=== PATIENT | female | born 1955 | race Two or more races ===

== ENCOUNTER 2018-12-13 09:30 | Inpatient (IN) | payer OTHER ==
[~2018-12-13] VITALS: Ht 154.9 cm; Wt 77.3 kg
[2019-02-17] MEDS ORDERED: METFORMIN HCL1000 M1 ORAL (10:54)
[2019-02-17] MEDS ORDERED: GLIPIZIDE XL10 M1 ORAL (10:54)
[2019-02-17] MEDS ORDERED: LISINOPRIL20 MG ORAL (10:54)
[2019-02-17] MEDS ORDERED: ATORVASTATIN CA40 MG ORAL (10:54)
[2019-02-17] MEDS ORDERED: ASPIR 8181 MG ORAL (10:54)
[2019-02-18] VITALS (16 sets, daily range): BP systolic 114–189; BP diastolic 54–85
[2019-02-18] MEDS ORDERED: fentaNYL 100 mcg/2 mL IV ONE (06:34)
[2019-02-18] MEDS ORDERED: Midazolam 2mg/2ml Inj ONE (06:34)
[2019-02-18] MEDS ORDERED: Lidocaine 1% MPF 10mg/ml 5ml ONE (06:37)
[2019-02-18] MEDS ORDERED: Zemuron 50mg/5ml Inj IV ONE (06:46)
[2019-02-18] MEDS ORDERED: Succinylcholine 20mg/ml 10ml vial ONE (06:46)
[2019-02-18] MEDS ORDERED: Vancomycin 1gm vial IVPB ONE (06:52)
[2019-02-18] MEDS ORDERED: Gelfoam Size TOPIC ONE (06:53)
[2019-02-18] MEDS ORDERED: Thrombin 5000 units TOPIC ONE (06:53)
[2019-02-18] MEDS ORDERED: Bacitracin 50000 Units Vial ONE (06:53)
[2019-02-18] MEDS ORDERED: Phenylephrine 10mg/ml Vial ONE (06:54)
[2019-02-18] MEDS ORDERED: LR 1000ml ONE (07:00)
[2019-02-18] MEDS ORDERED: Ketorolac 30mg Inj ONE (07:00)
[2019-02-18] MEDS ORDERED: ceFAZolin sod 2 GM in D5W 110 ML IVPB ONE (07:00)
[2019-02-18] MEDS ORDERED: Sterile Water Irrig 1000ml IRRIG ONE (07:00)
[2019-02-18] MEDS ORDERED: Propofol 1,000mg/ 100ml btl IV ONE (07:00)
[2019-02-18] MEDS ORDERED: NS Irrig 1000ml ONE (07:00)
--- NOTE | 2019-02-18 07:15 | Pre-Procedure Note/Attestation ---
Pre-Procedure Note/Attestation Complete Prior to Procedure Planned Procedure: not applicable Procedure Narrative: Anterior cervical discectomy and fusion of C56 and C67 Indications for Procedure Pre-Operative Diagnosis: herniation C56,67 Attestation I attest that I discussed the nature of the procedure; its benefits; risks and complications; and alternatives (and the risks and benefits of such alternatives ), prior to the procedure, with the patient (or the patient's legal student services representative). I attest that, if there was a reasonable possibility of needing a blood transfusion, the patient (or the patient's legal student services representative) was given the [facility] standardized written summary, pursuant to the Lorenzo Palak Blood Safety Act ([place] Health and Safety Code # 1645, as amended). I attest that I re-evaluated the patient just prior to the surgery and that there has been no change in the patient's H&P, except as documented below: Houston Herron MD Feb 18, 2019 07:15
--- NOTE | 2019-02-18 07:16 | Brief Operative Note ---
Immediate Post Operative Note Operative Note Chief Complaint: neck pain and radiculopathy Pre-op Diagnosis: herniation C56,67 Procedure: Anterior cervical discectomy and fusion of C56 and C67 Post-op Diagnosis: same as pre-op Findings: consistent w/pre-op dx studies Surgeon: Germaine Blending Plant Operator: Milena Anesthesia: general Specimen: none Complications: none Condition: stable Fluids: IVF Estimated Blood Loss: minimal Drains: none Implant(s) used?: Yes - Nuvasive interlock c Sz 6x2 Screws 6x 13mm Houston Herron MD Feb 18, 2019 07:16
[2019-02-18] MEDS ORDERED: HYDROcodone/Acetamin 5/325 tab ORAL PRN (07:30)
[2019-02-18] MEDS ORDERED: Milk of Magnesia 30ml Ud ORAL PRN (07:30)
[2019-02-18] MEDS ORDERED: HYDROmorphone 1mg/ml Carpuject IVP PRN (07:30)
[2019-02-18] MEDS ORDERED: Chloraseptic Spray 20mL Bottle ORAL PRN (07:30)
[2019-02-18] MEDS ORDERED: Naloxone 0.4mg/ml Inj IVP PRN (07:30)
[2019-02-18] MEDS ORDERED: HYDROmorphone 1mg/ml Carpuject SUBQ PRN (07:30)
[2019-02-18] MEDS ORDERED: Metoclopramide 10mg/2ml Inj IVP PRN ×2 (07:30→08:30)
[2019-02-18] MEDS ORDERED: HYDROcodone/Acetamin 7.5/325 tab ORAL PRN (07:30)
[2019-02-18] MEDS ORDERED: Morphine Sulfate 10mg/ml Inj ONE (08:18)
--- NOTE | 2019-02-18 08:29 | Anethesia Preoperative Eval ---
Anesthesia Pre-op PMH/ROS General Date of Evaluation: Feb 18, 2019 Time of Evaluation: 07:10 Anesthesiologist: Yuliana ASA Score: ASA 2 Mallampati Score Class I : Soft palate, uvula, fauces, pillars visible Class II: Soft palate, uvula, fauces visible Class III: Soft palate, base of uvula visible Class IV: Only hard plate visible Mallampati Classification: Class II Surgeon: Germaine Diagnosis: Cervical radiculopathy Surgical Procedure: ACDF Anesthesia History: none Family History: no anesthesia problems Allergies: Coded Allergies: No Known Allergies (Unverified , 02/17/19) Medications: see eMAR Patient NPO?: Yes NPO Date: Feb 17, 2019 NPO Time: 1999 Past Medical History Cardiovascular: Reports: HTN; Denies: CAD, [place], valve dz, arrhythmia, other Pulmonary: Denies: asthma, COPD, SANDOR, other Gastrointestinal/Genitourinary: Reports: GERD Neurologic/Psychiatric: Reports: depression/anxiety; Denies: dementia, CVA, TIA, other Endocrine: Reports: DM - stable on pills; Denies: hypothyroidism, steroids, other HEENT: Reports: cataract (L), other - L eye blind Hematology/Immune: Reports: anemia - mild; Denies: DVT, bleeding disorder, other Musculoskeletal/Integumentary: Reports: OA PMH Narrative: as above PSxH Narrative: C- sections x2, knee Sx, bilateral cataracts Anesthesia Pre-op Phys. Exam Physician Exam Last Vital Signs Date Time Temp Pulse Resp B/P (MAP) Pulse Ox O2 Delivery O2 Flow Rate FiO2 02/18/19 07:07 Room Air 02/18/19 06:52 98.3 88 18 189/79 (115) 99 Constitutional: NAD Neurologic: CN 2-12 intact Cardiovascular: RRR, no M/R/G Respiratory: CTA Airway Exam Mallampati Score: Class II MO: limited Neck: stiff ROM: limited Teeth: missing, broken Dentures: no upper, no lower Anesthesia Pre-op A/P Labs see chart Accucheck 80 at admission Studies Pre-op Studies: EKG - NSR Risk Assessment & Plan Assessment: ASA 2 Plan: GA with ETT neuromonitoring Status Change Before Surgery: No Pre-Antibiotics Drug: Ancef 2gr Given Within 1 Hr of Incision: Yes Time Given: 07:40 Ector Bridges MD Feb 18, 2019 08:29
[2019-02-18] MEDS ORDERED: Acetaminophen (Non formulary) 100 ML IV ONE (08:30)
[2019-02-18] MEDS ORDERED: Hydromorphone 0.5mg/0.5ml inj IVP PRN (08:30)
[2019-02-18] MEDS ORDERED: DiphenhydrAMINE 50mg/ml Inj IVP PRN (08:30)
[2019-02-18] MEDS ORDERED: Ketorolac 30mg Inj IV PRN (08:30)
[2019-02-18] MEDS ORDERED: LR 1000ml 1,000 ML IVLG SCH (08:30)
[2019-02-18] MEDS: Docusate 100mg cap ORAL SCH ×2 (09:00→17:26)
--- NOTE | 2019-02-18 09:25 | Immediate Post-Op Evaluation ---
Immediate Post-Op Evalulation Immediate Post-Op Evalulation Procedure: ACDF C5 to C7 Date of Evaluation: Feb 18, 2019 Time of Evaluation: 09:24 IV Fluids: 600 Blood Products: none Estimated Blood Loss: 50 Urinary Output: 200 Blood Pressure Systolic: 136 Blood Pressure Diastolic: 73 Pulse Rate: 68 Respiratory Rate: 20 O2 Sat by Pulse Oximetry: 99 Temperature (Fahrenheit): 97.6 Pain Score (1-10): 1 Nausea: No Vomiting: No Complications none Patient Status: reacts, patent, extubated, none Hydration Status: adequate Ector Bridges MD Feb 18, 2019 09:25
--- NOTE | 2019-02-18 10:45 | NUR ---
NURSE NOTES: REC'D FROM PACU SP ACDF C5-C6,C6=C7. DROWSY BUT AROUSABLE. IV INFUSING. ANT DERMABAND DRESSING DRY AND INTACT ICE PACK ON. V/S TAKEN. PAIN SCALE 5/10. WITH GOOD HAND MANAGER PROCESS. NEURO CHECK GOOD, IN NO APPARENT DISTRESS.
[2019-02-18] MEDS: NS w/KCl 20mEq 1000ml 1,000 ML IV SCH ×2 (11:35→21:45)
--- NOTE | 2019-02-18 11:41 | NUR ---
NURSE NOTES: dr tejeda covering for dr danielle gilliam called re pt back from surgery and re: home reconciliation med list. left message to return call.
[2019-02-18] MEDS: Dexamethasone 4mg/ml vial IVP SCH ×2 (13:51→20:14)
--- NOTE | 2019-02-18 14:41 | Diagnostic Imaging Report ---
Indication: Neck Pain Findings: 3 fluoroscopic views of the cervical spine were obtained. Intraoperative imaging utilizing localization followed by anterior fusion at C5-6 and C6-7 are demonstrated. IMPRESSION: Intraoperative imaging
--- NOTE | 2019-02-18 15:20 | NUR ---
CASE MANAGEMENT:REVIEW 63 YR OLD FEMALE HERE FOR ELECTIVE SURGERY SI: NECK PAIN AND RADICULOPATHY 97.1 66 19 121/62 97% ON RA IS: TO SURGERY FOR: ANTERIOR CERVICAL DISCECTOMY AND FUSION : TO MED/SURG 3 EAST POST OP
[2019-02-18] MEDS: ceFAZolin sod 1 GM in D5W 55 ML IV SCH (15:32)
--- NOTE | 2019-02-18 16:58 | NUR ---
NURSE NOTES: ACCUCHECK Jeanna HUI CALLED LEFT MESSAGE . WILL SEE PT LATER.
--- NOTE | 2019-02-18 17:30 | Operative Note - Dictated ---
DATE OF OPERATION: 02/18/2019 SURGEON: Houston Herron M.D., Orthopedic Spine Surgeon. DELIVERY PROFESSIONAL: BASILIO Avalos. PREOPERATIVE DIAGNOSES: 1. Intractable neck pain. 2. Radiculopathy. 3. Herniation, C5-C6 and C6-C7. 4. Neural foraminal stenosis, C5-C6 and C6-C7. 5. Stenosis. POSTOPERATIVE DIAGNOSES: 1. Intractable neck pain. 2. Radiculopathy. 3. Herniation, C5-C6 and C6-C7. 4. Neural foraminal stenosis, C5-C6 and C6-C7. 5. Stenosis. PROCEDURE PERFORMED: 1. Anterior cervical discectomy and fusion of C5-C6 using NuVasive Interlock-C, size 6 with three screws of 13 mm length. There was 1 mL of Osteocel allograft bone used. 2. Anterior cervical discectomy and fusion of C6-C7 using NuVasive Interlock-C, size 6 with three screws of 13 mm. There was 1 mL of Osteocel allograft bone used. 3. Use of intraoperative microscope. 4. Motor evoked potential monitoring. 5. Somatosensory evoked potential monitoring. 6. Supervision and interpretation of fluoroscopy. COMPLICATIONS: None. ANESTHESIA: General. ESTIMATED BLOOD LOSS: Less than 100 mL. INDICATIONS FOR SURGERY: This patient is a 63-year-old female, who has a history of intractable neck pain, radiculopathy, herniation of C5-C6 and C6-C7, neural foraminal stenosis of C5-C6 and C6-C7, and stenosis. We tried a course of conservative management but despite this course there was still a significant component of persistent, recalcitrant neck pain and arm pain. The MRI demonstrated significant neural foraminal compromise secondary to disc herniations at C5-C6 and C6-C7. We had a long discussion with Arlen regarding the risks and benefits of surgery. Our discussion included but was not limited to nonoperative management, chiropractic management, another epidural steroid injection as well definitive management in the form of surgery. We recommended an anterior cervical discectomy and fusion of C5-C6 and C6-C7 as final definitive management. We reviewed the risks and benefits of surgery with the patient. Our discussion included a comprehensive review of the clinical issues and the nature of the clinical decision. We reviewed the alternatives, including doing nothing. The patient elected to proceed accordingly with an anterior cervical discectomy and fusion of C5-C6 and C6-C7. We had a long discussion regarding the risks, alternatives and benefits of surgery. Our description of the risks included a discussion in person as well as a signed consent which detailed all pertinent risks from the procedure itself. Briefly, our discussion included but was not limited to infection, bleeding, pseudarthrosis, spinal cord injury, neurovascular injury, dural tear, CSF leak, neuropathy, paralysis, permanent weakness/drop foot/drop arm, paresthesias, blindness, palsy and weakness. The patient understood there may be a need for a revision surgery or additional procedures. Approach-related complications including dysphonia, dysphagia, blindness, permanent vocal cord and neural injury, hematoma, swallowing and breathing difficulty. Medical complications were reviewed including liver, kidney, shock, cardiopulmonary failure, anesthesia complications including , swelling, damage to the musculature, larynx/voice injury or loss, esophagus/throat, trachea, blood vessels and muscles/muscular sprain and lungs/pneumothorax during this surgical procedure; injury to deeper structures may be temporary or permanent. After this review of risks, the patient understood these and elected to proceed. A written and verbal consent was given. We discussed the pros and cons of all the alternatives. We discussed the uncertainties associated with the decision. Afterwards I assessed the patient's understanding and explored their preferences. All questions were answered and no guarantees were given. Medical clearance was obtained prior to surgery. INTRAOPERATIVE FINDINGS: At C6-C7, there was a collapsed disc space noted with a disc that was desiccated itself and severe foraminal stenosis bilaterally, right more than left-sided. At C5-C6, there was a tear in the posterior longitudinal ligament noted on the right hand side, which was 30 degrees cephalad to caudad. Through this tear, I noticed migration of a soft herniated fragment, which was encroaching on the neural foraminal at C5-C6. This was probed with a Microsect 1-B. The stalk of the disc retrieved along with the remainder of the nuclear fragments of the neural foraminal, which was stenotic as a result of the herniated disc, right more than left sided. DESCRIPTION OF PROCEDURE: Under the benefit of general endotracheal anesthesia and with the assistance of the entire operative team, the patient was moved from the rney onto the operative table in the supine position. The head was secured and carefully positioned appropriately. Bilateral arms were secured with Gel Pads and foam and all bony prominences were padded. For the bilateral lower extremities SCD and IGNACIO hose were placed for DVT prophylaxis. A surgical timeout was called which corroborated our planned procedure of an anterior cervical discectomy and fusion of C5-C6 and C6-C7. Preoperative antibiotics were administered within 30 minutes of the incision for antibiotic prophylaxis. Using lateral fluoroscopic radiography, the operative levels were delineated. Next the wound was prepped and draped with Chlorhexidine and sterile drapes. An incision was based on lateral fluoroscopy and we centered our incision at the C5-C6 and C6-C7 interspace and next using a standard Butts-Leigh anterior based approach the incision was taken down through the skin and subcutaneous tissues until the vertebral bodies and their corresponding disc spaces were visualized. A needle was placed into the interspace to confirm placement of the operative interspace and we performed the remainder of procedure under microscopic visualization. Next, using a bipolar and Bovie cautery to ensure meticulous hemostasis, the longus colli was mobilized bilaterally and retractors were placed deep to the longus colli bilaterally to address retraction. Next we turned our attention to the radical anterior discectomy. This was initially performed at C5-C6. First by using a 15 blade scalpel followed by narrow pituitaries and a Microsect 5-B curette was used to denude the endplate of all cartilaginous tissue. Next using a [employer] Thanh AM8 drill bit the partial vertebrectomy was performed in a jpmt-gs-pxdz and layer by layer fashion, and ultimately the posterior uncinate joints bilaterally and posterior osteophytic lips and margins causing central and lateral impingement were carefully denuded until visualization of the posterior longitudinal ligament was possible. At C5-C6, there was a tear in the posterior longitudinal ligament noted on the right hand side, which was 30 degrees cephalad to caudad. Through this tear, I noticed migration of a soft herniated fragment, which was encroaching on the neural foraminal at C5-C6. This was probed with a Microsect 1-B. The stalk of the disc retrieved along with the remainder of the nuclear fragments of the neural foraminal, which was stenotic as a result of the herniated disc, right more than left sided. An endplate preparation was performed in the exact same fashion using an intervertebral expressive therapist, sequential distraction was obtained throughout the disc space. This neural foraminal compression was carefully resected using a Kerrison-1 and Kerrison-2 rongeurs until complete decompression of the spinal cord was visualized and complete decompression of the neural foramina and nerve root therein as well as the axilla and lateral margin of the nerve root was visualized and subsequently completely decompressed. The family was notified at one hour intervals throughout the procedure to provide for consistent updates. Next, we turned our attention to the radical anterior discectomy at the C6-C7 level first by using a 15 blade scalpel followed by narrow pituitaries and a Microsect 5-B curette was used to denude the endplate of all cartilaginous tissue. Next, using a [employer] AM8 drill bit, the partial vertebrectomy was performed in a pblf-so-zcta and qzvsz-ha-gvbwx fashion, and ultimately the posterior uncinate joints bilaterally and posterior osteophytic lips and margins causing central and lateral impingement were carefully denuded until visualization of the posterior longitudinal ligament was possible. An endplate preparation was performed in the exact same fashion using an intervertebral expressive therapist, sequential distraction was obtained throughout the disc space. At C6-C7, there was a collapsed disc space noted with a disc that was desiccated itself and severe foraminal stenosis bilaterally, right more than left-sided. We saw a tear/rent in the PLL and this was carefully mobilized and dissected using a Microsect 1-B curette until we visualized a broad-based disc herniation with compression of the spinal cord as well neural foramina which was right-sided. This neural foraminal compression was carefully resected using a Kerrison-1 and Kerrison-2 rongeurs until complete decompression of the spinal cord was visualized and complete decompression of the neural foramina and nerve root therein as well as the axilla and lateral margin of the nerve root was visualized and subsequently completely decompressed. We next turned our attention towards trialing our implant within the disc space. We initially tried size 5 and size 6 trial at C5-C6 from the NuUpstream Interlock system at each level, which appeared to be appropriate under AP and lateral fluoroscopy as well as in terms of its height, depth, width, and lack of toggle. The PEEK (polyetheretherketone) interbody cages were then both packed with allograft bone from Osteocel and local autograft bone matrix. Next, these were then carefully advanced and secured into their intervertebral spaces under direct visualization and with supervision of AP and lateral fluoroscopic views. We next turned our attention towards trialing our implant within the disc space. We initially tried size 5 and size 6 trial at C6-C7 from the NuVasive Interlock system at each level, which appeared to be appropriate under AP and lateral fluoroscopy as well as in terms of its height, depth, width, and lack of toggle. The PEEK (polyetheretherketone) interbody cages were then both packed with allograft bone from Osteocel and local autograft bone matrix. Next, these were then carefully advanced and secured into their intervertebral spaces under direct visualization and with supervision of AP and lateral fluoroscopic views. We next turned our attention towards plating. At C5-C6, plating was performed with NuVasive Interlock-C plating system. A total of three screws, size 6, 13 mm in length were inserted and confirmed under AP and lateral fluoroscopy and confirmed to be in excellent position. At C6-C7, plating was performed with NuVasive Interlock-C plating system. A total of three screws, size 6, 13 mm in length were inserted and confirmed under AP and lateral fluoroscopy and confirmed to be in excellent position. After a finger sweep we confirmed removal of all sponges. The retractor was removed and we next turned our attention to meticulous hemostasis with FloSeal and bipolar cautery. After the sponge and needle count was again found to be correct with our second count, we next turned our attention to closure. The wound was again copiously irrigated with antibiotic impregnated saline. Closure consisted of 4-0 clear nylon for the platysma, and 6-0 clear nylon for the superficial skin. Final skin closure and dressings consisted of Dermabond. Prior to final closure, a final radiograph was obtained which demonstrated the hardware is intact with excellent position throughout. The patient tolerated the procedure well. The patient was carefully extubated after the conclusion of surgery. We discussed the findings of the surgery with the family upon completion of the case. At this point the patient was transferred to the spine floor for further observation. Houston Herron M.D. DR: MART JOB#: [id number] CC: MASON
--- NOTE | 2019-02-18 19:03 | NUR ---
NURSE NOTES: resting in bed. in no apparent distress. dr tejeda here to see pt.
--- NOTE | 2019-02-18 19:10 | Consultation ---
Consult Note Assessment/Plan Cardiology coverage fro Dr. Gibbons Full note dictated [id number] Raisa Markham MD Feb 18, 2019 19:09
--- NOTE | 2019-02-18 19:18 | NUR ---
HAND-OFF: Report given to Toma DEMARCO RN.
--- NOTE | 2019-02-18 19:20 | NUR ---
NURSE NOTES: Report taken from ABBI Cloud. patient is awake and in bed, A&Ox4, speaks Armenian but can understand some ecuadorean. Daughter at bedside. No signs of distress on room air. having some pain and soreness near incision site and posterior cervical area, 5/10. States that she does have some pain with swallowing, so has to take meds individually. Surgical site is clean and dry, dermabond open to air. She stated that she did not eat a lot of food as she was fearful of the increase in her blood sugar. Contacted MD for correct orders for medication administration. IV site c/d/i and patent, running NS+20KCl at 100mls/hr. Bed in lowest position, call light within reach.
[2019-02-18] MEDS: HYDROcodone/Acetamin 7.5/325 tab ORAL PRN (20:12)
[2019-02-18] MEDS: Lisinopril 20mg tab ORAL SCH (20:13)
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
[2019-02-18] MEDS ORDERED: Atorvastatin 20mg tab ORAL SCH (21:00)
[2019-02-18] MEDS: GlipiZIDE 5mg tab ORAL SCH (22:16)
[2019-02-18] MEDS: metFORMIN 500mg tab ORAL SCH (22:16)
[2019-02-19] VITALS: BP 132/69
[2019-02-19] MEDS: ceFAZolin sod 1 GM in D5W 55 ML IV SCH ×2 (00:31→08:09)
[2019-02-19] MEDS: Dexamethasone 4mg/ml vial IVP SCH ×2 (02:14→08:09)
[2019-02-19 04:00] VITALS: BP 100/50
[2019-02-19 06:09] LABS: BASOPHILS % (AUTO) 0.2 % (0.0-2.0); HEMATOCRIT 26.6 % (37.0-47.0); LYMPHOCYTES % (AUTO) 12.8 % (20.0-45.0); MEAN CORPUSCULAR VOLUME 94 FL (80-99); MONOCYTES % (AUTO) 2.3 % (1.0-10.0); NEUTROPHILS % (AUTO) 84.7 % (45.0-75.0); PLATELET COUNT 225 K/UL (150-450); RED BLOOD COUNT 2.84 M/UL (4.20-5.40); RED CELL DISTRIBUTION WIDTH 12.4 % (11.6-14.8); WHITE BLOOD COUNT 8.7 K/UL (4.8-10.8)
[2019-02-19 06:31] LABS: ANION GAP 9 mmol/L (5-15); BLOOD UREA NITROGEN 34 mg/dL (7-18); CALCIUM 8.2 MG/DL (8.5-10.1); CARBON DIOXIDE 20 MMOL/L (21-32); CHLORIDE 102 MMOL/L (98-107); CREATININE 1.4 MG/DL (0.55-1.30); SODIUM 131 MMOL/L (136-145)
[2019-02-19] MEDS: NS w/KCl 20mEq 1000ml 1,000 ML IV SCH (06:35)
--- NOTE | 2019-02-19 07:36 | NUR ---
HAND-OFF: Report given to ABBI Bryant..
--- NOTE | 2019-02-19 07:45 | NUR ---
NURSE NOTES: Received report from Victor M GO. Patient is awake alert and oriented x4, no acute distress noted, patient is reporting some pain in anterior neck region. Surgical site clean and dry, no signs/symptoms of surgical site infection noted. IVF not running at this time, left hand IV intact and asymptomatic. SCD's on. Patient's family member at bedside, updated on plan of care for the day. Side rails upx3, bed low and locked, call light in reach. Will continue to monitor.
[2019-02-19 08:00] VITALS: BP 138/52
--- NOTE | 2019-02-19 08:54 | 48 Hour Post Anesthesia Eval ---
Post Anesthesia Evaluation Procedure: ACDF C5 to C7 Date of Evaluation: Feb 19, 2019 Airway: patent Nausea: No Vomiting: No Hydration Status: adequate Cardiopulmonary Status: at baseline Mental Status/LOC: patient returned to baseline Post-Anesthesia Complications: 0 Follow-up care needed: N/A - further care as per federicodebbie team Marie Wade MD Feb 19, 2019 08:54
[2019-02-19] MEDS ORDERED: GlipiZIDE 5mg tab ORAL SCH (09:00)
[2019-02-19] MEDS ORDERED: metFORMIN 500mg tab ORAL SCH (09:00)
[2019-02-19] MEDS: GlipiZIDE 5mg tab ORAL SCH (09:40)
[2019-02-19] MEDS: Lisinopril 20mg tab ORAL SCH (09:40)
[2019-02-19] MEDS: Docusate 100mg cap ORAL SCH (09:40)
[2019-02-19] MEDS: metFORMIN 500mg tab ORAL SCH (09:40)
--- NOTE | 2019-02-19 10:14 | NUR ---
NURSE NOTES: Spoke with Dr. Herron. Reviewed medication reconciliation with MD. MD ordered for patient to continue all medications except ASA. MD ordered for patient to stop taking ASA for 5 days. Will enter as ordered.
[2019-02-19 10:33] LABS: ANION GAP 12 mmol/L (5-15); BLOOD UREA NITROGEN 35 mg/dL (7-18); CALCIUM 8.8 MG/DL (8.5-10.1); CARBON DIOXIDE 20 MMOL/L (21-32); CHLORIDE 103 MMOL/L (98-107); CREATININE 1.4 MG/DL (0.55-1.30); POTASSIUM 5.7 MMOL/L (3.5-5.1); SODIUM 134 MMOL/L (136-145)
--- NOTE | 2019-02-19 11:02 | NUR ---
NURSE NOTES: Called Dr. Markham and reported to MD that potassium is still high as well as glucose. MD gave orders and stated patient may be discharged home today after Kayexalate. Orders entered, will carry out.
[2019-02-19] MEDS ORDERED: Sodium Polystyrene Sulfonate 15gm Powder ORAL SCH (11:15)
[2019-02-19] MEDS: HYDROcodone/Acetamin 7.5/325 tab ORAL PRN (11:31)
[2019-02-19 12:00] VITALS: BP 142/72
[2019-02-19] MEDS ORDERED: Tubing IV Secondary IV ONE (13:53)
--- NOTE | 2019-02-19 14:01 | NUR ---
NURSE NOTES: Patient discharged. No acute distress on discharge. Patient provided with discharge education/handouts in her citizen potawatomi language. Handouts, education, and instructions reviewed with patient and her daughter Ирина. Patient and her daughter report understanding of provided education. Patient seen by Dr Markham at bedside prior to discharge and MD stated patient is clear and stable for discharge. IV removed intact. Patient escorted off unit via wheelchair by RN to private vehicle.
--- NOTE | 2019-02-19 14:06 | Cardiology Progress Note ---
Assessment/Plan Problem List: (1) Hypertension (2) Type 2 diabetes mellitus (3) Hyperkalemia (4) HNP (herniated nucleus pulposus), cervical Status: stable Status Narrative Pt stable post op. She was hyperkalemic this am, but had K supplement in IV, which has been dcd Glucoses are elevated Assessment/Plan She received kayexelate this am Will be dc d home today, and will have followup labs drawn tomorrow. Glucose also elevated - has been restarted on ADA diet plus meds Subjective ROS Limited/Unobtainable: No Subjective Cardiology for Dr. Gibbons Mrs. Cano has no c/o. Objective Last 24 Hour Vital Signs Date Time Temp Pulse Resp B/P (MAP) Pulse Ox O2 Delivery O2 Flow Rate FiO2 02/19/19 12:00 98.3 71 19 142/72 (95) 99 02/19/19 09:40 138/52 02/19/19 09:00 Room Air 02/19/19 08:00 98.2 76 18 138/52 (80) 97 02/19/19 04:00 97.8 70 17 100/50 (67) 98 02/19/19 00:00 98.2 72 17 132/69 (90) 97 02/18/19 21:00 Room Air 02/18/19 20:13 134/68 02/18/19 20:00 97.9 77 16 134/68 (90) 97 02/18/19 16:00 97.6 74 19 128/66 (86) 100 General Appearance: WD/WN, no apparent distress, alert EENT: PERRL/EOMI, other Neck: supple, no JVD, other Rhythm: NSR Cardiovascular: normal rate, regular rhythm, no gallop/murmur Respiratory/Chest: lungs clear Abdomen: non tender, soft, no mass Extremities: no swelling Intake and Output 02/18/19 02/19/19 19:00 07:00 Intake Total 2025 ml 740 ml Output Total 250 ml Balance 1775 ml 740 ml Intake Oral 420 ml 740 ml IV Total 1605 ml Output Urine Total 200 ml Estimated Blood Loss 50 ml # Voids 1 3 Laboratory Tests Test 02/19/19 05:00 02/19/19 10:08 White Blood Count 8.7 K/UL (4.8-10.8) Red Blood Count 2.84 M/UL (4.20-5.40) L Hemoglobin 9.0 G/DL (12.0-16.0) L Hematocrit 26.6 % (37.0-47.0) L Mean Corpuscular Volume 94 FL (80-99) Mean Corpuscular Hemoglobin 31.7 PG (27.0-31.0) H Mean Corpuscular Hemoglobin Concent 33.8 G/DL (32.0-36.0) Red Cell Distribution Width 12.4 % (11.6-14.8) Platelet Count 225 K/UL (150-450) Mean Platelet Volume 7.7 FL (6.5-10.1) Neutrophils (%) (Auto) 84.7 % (45.0-75.0) H Lymphocytes (%) (Auto) 12.8 % (20.0-45.0) L Monocytes (%) (Auto) 2.3 % (1.0-10.0) Eosinophils (%) (Auto) 0.0 % (0.0-3.0) Basophils (%) (Auto) 0.2 % (0.0-2.0) Sodium Level 131 MMOL/L (136-145) L 134 MMOL/L (136-145) L Potassium Level 6.0 MMOL/L (3.5-5.1) *H 5.7 MMOL/L (3.5-5.1) H Chloride Level 102 MMOL/L (98-107) 103 MMOL/L (98-107) Carbon Dioxide Level 20 MMOL/L (21-32) L 20 MMOL/L (21-32) L Anion Gap 9 mmol/L (5-15) 12 mmol/L (5-15) Blood Urea Nitrogen 34 mg/dL (7-18) H 35 mg/dL (7-18) H Creatinine 1.4 MG/DL (0.55-1.30) H 1.4 MG/DL (0.55-1.30) H Estimat Glomerular Filtration Rate 38.2 mL/min (>60) 38.2 mL/min (>60) Glucose Level 375 MG/DL (74-106) H 394 MG/DL (74-106) H Calcium Level 8.2 MG/DL (8.5-10.1) L 8.8 MG/DL (8.5-10.1) Raisa Markham MD Feb 19, 2019 14:06
--- NOTE | 2019-02-19 16:15 | Discharge Summary ---
DATE OF ADMISSION: 02/18/2019 DATE OF DISCHARGE: 02/19/2019 REASON FOR ADMISSION: Herniation, C5-C6 and C6-C7. PROCEDURE PERFORMED DURING ADMISSION: Anterior cervical discectomy and fusion of C5-C6 and C6-C7. HOSPITAL COURSE/TREATMENT RENDERED: DISCHARGE PHYSICAL EXAM: 1. Patient was ambulating with and without the assistance of physical therapy. 2. Prior to discharge home incision was clean and dry with minimal swelling. 3. Follows commands. 4. Alert and oriented. 5. [place] discontinued, voiding. 6. Incentive spirometer at bedside. 7. IVF hep locked. MOTOR: Demonstrates expected postoperative bulk and tone. Moves biceps, triceps, and deltoid musculature on command. Moves hip flexors, quadriceps, tibialis anterior, EHL, gastrocsoleus musculature on command as well. TREATMENT RENDERED: 1. Daily nursing care. 2. Physical Therapy. 3. Occupational Therapy. 4. Intravenous medications. 5. Oral medications. 6. Daily postoperative examinations by Spine surgery team. CONDITION OF PATIENT ON DISCHARGE: The condition on discharge is stable for discharge to home. DISCHARGE INSTRUCTIONS: Our specific instructions relating to physical activity, medications diet and follow-up care are detailed in our standard operative folder and were given to this patient prior to surgery. We will however summarize these briefly as stated below. Regarding physical activity we would like the patient to limit their flexion, extension and rotation. We also require a limitation on their bending lifting and twisting. All medication has been called in prior to surgery to their pharmacy of choice. They can resume their regular diet once tolerated. We would like them to shower and limit soaking the wound in a tub/Jacuzzi/the ocean for a period of one month or until the incision is completely healed. We will have them follow up in our office in three weeks time for their regularly scheduled appointment. They understand to call our office tomorrow to schedule the time for their three week followup appointment. The patient will notify us should they experience any increase in the severity of pain, redness/swelling/ or drainage from their incision. Houston Herron M.D. DR: JOSS JOB#: [id number] CC:
--- NOTE | 2019-02-21 12:14 | Cardiology Report ---
APPROVED REPORT EKG Measurement Heart [id number] NV [id number] [id number] Normal sinus rhythm Possible Anterior infarct, age undetermined Abnormal ECG
== END 2019-02-19 13:54 | disposition home or self-care (01) | DRG 473 ==
LOC: SDSOVERFLO 02-18 06:23 → 3E 02-18 11:09
PROC: 0RB30ZZ Excision of Cervical Vertebral Disc, Open Approach (ICD-10-PCS; principal; 2019-02-18 07:00)
PROC: 0RG20A0 Fusion of 2 or more Cervical Vertebral Joints with Interbody Fusion Device, Anterior Approach, Anterior Column, Open Approach (ICD-10-PCS; principal; 2019-02-18 07:00)
DX: M50.122 Cervical disc disorder at C5-C6 level with radiculopathy (principal); M48.02 Spinal stenosis, cervical region; V89.2XXS Person injured in unspecified motor-vehicle accident, traffic, sequela; Z79.82 Long term (current) use of aspirin; E78.5 Hyperlipidemia, unspecified; Z79.84 Long term (current) use of oral hypoglycemic drugs; E11.319 Type 2 diabetes mellitus with unspecified diabetic retinopathy without macular edema; H54.62 Unqualified visual loss, left eye, normal vision right eye; E87.5 Hyperkalemia
CPT/HCPCS: 36415; 72040; 76000; 80048; 82962; 85025; 86850; 86900; 86901; 87081; 93005; 94003; 94150; J2250; J2370; J2405